=== PATIENT | female | born 1980 | race African-American/Black ===

== ENCOUNTER 2016-11-29 01:36 | Inpatient (IN) | payer SELFPAY ==
[2016-11-29] VITALS (9 sets, daily range): BP systolic 106–128; BP diastolic 48–81
[~2016-11-29] VITALS: Ht 160 cm; Wt 86.6 kg
[2016-11-29 04:46] LABS: BILIRUBIN,URINE NEGATIVE (NEG); GLUCOSE,URINE NEGATIVE (NEG); NITRITE,URINE NEGATIVE (NEG); PH,URINE 6.5; PROTEIN,URINE NEGATIVE (NEG-TRACE); UROBILINOGEN,URINE 0.2 mg/dL (0.2 mg/dL)
[2016-11-29 05:00] LABS: BACTERIA,URINE FEW /HPF (0-FEW); RBC,URINE 0 /HPF (0-2); SQUAMOUS EPITHELIAL CELL,UR MOD /LPF; WBC,URINE OCC /HPF (0-4)
[2016-11-29] MEDS ORDERED: ONDA4TAB10 SL (05:43)
[2016-11-29] MEDS ORDERED: TRAM-48 PO (05:43)
--- NOTE | 2016-11-29 05:43 | PHYS DOC ---
Past Medical History Past Medical History: No Pertinent History Past Surgical History: Other Additional Past Surgical Histo: "FOR MY STOMACH" Alcohol Use: Occasionally Drug Use: None Adult General Chief Complaint Chief Complaint: ABDOMINAL PAIN HPI HPI Patient is a 36 year old female who presents to the ER today complaining of lower abdominal pain since 2 PM. Patient denies any fevers shakes chills nausea vomiting diarrhea dysuria frequency or urgency. Patient reports that she does have a vaginal discharge which is new or concerning to her. Patient reports her last sexual intercourse was October 03. Patient reports that she's had 2 different partners in the last 6 month however whenever she's had sex with unprotected sex that she does not think it STD. Patient has any hypertension diabetes liver longer kidney problems. Patient portion smokes and drinks. Patient is not allergic to any medications. Patient's last menstrual period was November. Patient's physical exam was significant for tenderness to palpation to the right lower quadrant suprapubic region. Patient has normal active bowel sounds. Patient has no rebound or guarding. Patient has no signs or symptoms of be consistent with an acute surgical abdomen. She has pelvic exam revealed a white cheeselike discharge in her vaginal vault. Patient has no cervical motion tenderness. No adnexal masses. Patient's ER workup consisted of labs were all unremarkable. Patient had a UA that was negative. Patient will be treated with Diflucan for her yeast vaginitis. Patient is CT scan of her abdomen pelvis which do not show any acute pathology. Assessment and plan Abdominal pain without peritoneal findings. Etiology unclear. Patient be given Diflucan to assist with her yeast vaginitis. Patient's CT scan did not reveal any acute pathology. Patient be discharged home with Motrin and Zofran. Patient had a CT scan of the abdomen and pelvis result 6:05 AM. Radiology reports some mild amount of stranding and a slightly enlarged appendix in the right lower quadrant which should be consistent with early appendicitis. I discussed the case with Dr. Fernández and he requested that we admit the patient and he will consult for possible surgical evaluation. Patient be admitted to the hospital service. I discussed with the patient that she might have appendicitis and will be admitted for evaluation by surgery. Review of Systems Review of Systems Constitutional: Denies fever or chills [] Eyes: Denies change in visual acuity, redness, or eye pain [] All other review systems are negative except as documented in the history of present illness portion. Current Medications Current Medications Current Medications Medications (Trade) Dose Ordered Sig/Kary Start Time Stop Time Status Last Admin Dose Admin Fluconazole (Diflucan) 150 mg 1X ONCE 11/29/16 06:00 11/29/16 06:01 DC Allergies Allergies Allergies Coded Allergies Type Severity Reaction Last Updated Verified No Known Drug Allergies 09/04/13 No Physical Exam Physical Exam Constitutional: Well developed, well nourished, no acute distress, non-toxic appearance. [] HENT: Normocephalic, atraumatic, bilateral external ears normal, oropharynx moist, no oral exudates, nose normal. [] Eyes: PERRLA, EOMI, conjunctiva normal, no discharge. [] Neck: Normal range of motion, no tenderness, supple, no stridor. [] Cardiovascular:Heart rate regular rhythm, no murmur [] Lungs & Thorax: Bilateral breath sounds clear to auscultation [] Abdomen: Soft nondistended no rebound or guarding. Positive tenderness in the right lower quadrant. Skin: Warm, dry, no erythema, no rash. [] Back: No tenderness, no CVA tenderness. [] Extremities: No tenderness, no cyanosis, no clubbing, ROM intact, no edema. [] Neurologic: Alert and oriented X 3, normal motor function, normal sensory function, no focal deficits noted. [] Psychologic: Affect normal, judgement normal, mood normal. [] Current Patient Data Vital Signs Vital Signs Date Time Temp Pulse Resp B/P (MAP) Pulse Ox O2 Delivery O2 Flow Rate FiO2 11/29/16 01:38 98.3 58 18 117/66 (83) 100 Room Air 98.3 Lab Values Laboratory Tests Test 11/29/16 03:51 11/29/16 04:30 POC Urine HCG, Qualitative Hcg negative (Negative) Urine Collection Type Unknown Urine Color Yellow Urine Clarity Clear Urine pH 6.5 Urine Specific [place] 1.020 Urine Protein Negative mg/dL (NEG-TRACE) Urine Glucose (UA) Negative mg/dL (NEG) Urine Ketones (Stick) Negative mg/dL (NEG) Urine Blood Negative (NEG) Urine Nitrite Negative (NEG) Urine Bilirubin Negative (NEG) Urine Urobilinogen Dipstick 0.2 mg/dL (0.2 mg/dL) Urine Leukocyte Esterase Negative (NEG) Urine RBC 0 /HPF (0-2) Urine WBC Occ /HPF (0-4) Urine Squamous Epithelial Cells Mod /LPF Urine Bacteria Few /HPF (0-FEW) Urine Mucus Mod /LPF Microbiology 11/29/16 Wet Prep - Final, Complete EKG EKG [] Radiology/Procedures Radiology/Procedures [] Course & Med Decision Making Course & Med Decision Making Pertinent Labs and Imaging studies reviewed. (See chart for details) [] Dragon Disclaimer Dragon Disclaimer This electronic medical record was generated, in whole or in part, using a voice recognition dictation system. Departure Departure Impression: Primary Impression: Chronic abdominal pain Additional Impressions: Yeast vaginitis Abdominal pain Appendicitis Disposition: ADMITTED INPATIENT Admitting Physician: Other (reusch) Condition: IMPROVED Referrals: NO PCP (PCP) Patient Instructions: Abdominal Pain (Nonspecific), Vaginitis, Monilial Scripts Ondansetron (ZOFRAN ODT) 4 Mg Tab.rapdis 1 TAB SL Q6HRS Y for NAUSEA, #12 TAB Prov: JOE ALBRIGHT MD 11/29/16 Tramadol Hcl (ULTRAM) 50 Mg Tablet 1 TAB PO Q6HRS, #14 TAB Prov: JOE ALBRIGHT MD 11/29/16 Problem Qualifiers JOE ALBRIGHT MD Nov 29, 2016 05:43
--- NOTE | 2016-11-29 05:54 | RAD ---
INDICATION: rlq pain COMPARISON: None. TECHNIQUE: Axial CT images were obtained through the abdomen and pelvis without intravenous contrast. Limited assessment of solid organ structures and vasculature secondary to lack of intravenous contrast. One or more of the following individualized dose reduction techniques were utilized for this examination: 1. Automated exposure control; 2. Adjustment of the mA and/or kV according to patient size; 3. Use of iterative reconstruction technique. FINDINGS: Abdomen: Chest Base: Partially imaged without gross abnormality. Vessels: No abdominal aortic aneurysm. Liver/Biliary: No intrahepatic biliary duct dilation. Pancreas: No peripancreatic edema. Spleen: Normal. Kidneys/Adrenal: No hydronephrosis. GI: The appendix measures up to approximately 6-7 mm. There is some questionable minimal stranding to the fat in the right lower quadrant of the abdomen but this is a subtle finding. Pelvis: Bladder: No definite adjacent inflammation. IMPRESSION: 1. No hydronephrosis bilaterally. 2. There is some questionable very mild stranding of the fat of the right lower quadrant of the abdomen. This region is located lateral to the appendix which measures near the upper limits of normal in size in some portions. Given that the region of possible stranding is in the right lower quadrant of the abdomen but not immediately surrounding the appendix and the appendix is only borderline in size this examination is equivocal for appendicitis. Some patients can have a borderline size appendix at baseline but would be difficult to exclude a very early appendicitis if there is high clinical concern. If unclear clinically and further imaging evaluation is desired a follow-up CT could be obtained at a later time to assess whether there is further increase in size of the appendix or increase in the questionable stranding within the region. 3. There is some free fluid seen in the pelvis. Electronically signed by: Alverto Parra MD (11/29/2016 5:50 AM)
[2016-11-29] MEDS ORDERED: FLUCONAZOLE 100 MG TABLET. PO ONE (06:00)
[2016-11-29] MEDS ORDERED: fentaNYL PF VIAL 100 MCG/2 ML VIAL IV PRN ×4 (06:15→12:15)
--- NOTE | 2016-11-29 06:40 | ACF ---
Admission Forms Criteria ABDOMINAL PAIN Clinical Indications for Admission to Inpatient Care (Place 'X' for any and all applicable criteria): Admission is indicated for ANY ONE of the following(1)(2)(3)(4)(5): [x]I. Inpatient admission required rather than observation care (Also use Abdominal Pain: Observation Care, as appropriate) because of ANY ONE of the following: [x]a) Severe pain requiring acute inpatient management [ ]b) Identification of etiology/finding that requires inpatient care (eg, aortic dissection, free air) [ ]c) Absent bowel sounds with complete ileus(6) [ ]d) Suspected toxic megacolon [ ]e) Severe electrolyte abnormalities requiring inpatient care [ ]f) High fever or infection requiring inpatient admission as indicated by ANY ONE of following(7)(8): [ ] i) Appropriate outpatient or observational care antimicrobial treatment unavailable, not effective, or not feasible [ ] ii) Documented bacteremia [ ] iii) Temperature > 104.9 degrees F (oral) [ ] iv) T >103.1 F (oral) or < 96.8 F(rectal) that does not respond to all emergency treatment measures [ ]g) Signs of intestinal obstruction [B] [ ]h) Hemodynamic instability [ ]i) IV fluid to replace significant ongoing losses (greater than 3 L/m2 per day) (12)(13) [ ]j) Percutaneous or open drainage (eg, abscess, biliary tract ) procedures [ ]k) Parenteral nutrition regimen that must be implemented on inpatient basis [ ]l) Other condition,treatment or monitoring requiring inpatient admission. [ ]II. Peritoneal signs present [ ]III. Surgery needed that cannot be performed on an ambulatory basis. [ ]IV. Evaluation requires patient to not eat or drink for extended period ( eg, more than 24 hours). [ ]V. Contraindications and/or Inappropriate clinical situations for Observational Care in patients with abdominal pain, when ANY ONE of the following is required: [ ]a) Thorough evaluation is required to prevent catastrophic events due to delays in diagnosing (e.g.Mesenteric ischemia) 1,3 [ ]b) Patient with severe pathology or with chronic symptoms unlikely to improve in the ED stay (3) [ ]. General contraindications and/or Inappropriate clinical situations for Observational Care in patients with abdominal pain, when ANY ONE of the following is required: [ ]a) Prediction of prolongation of LOS based on ANY ONE of the following may be considered as a contraindication for observational care 2, 3, 4, 5, 6, 7, 8, 9, 10, 11 [ ]i) Age > 65 yrs. [ ]ii) Patient arriving by ambulance [ ]iii) Patient with high acuity [ ]iv) Patient requiring vital sign monitoring [ ]v) Patient on IV medication [ ]b) Systolic blood pressures 180mmHg 3,12 [ ]c) Patient with altered mental status including delirium and other alteration of consciousness, (3) [ ]d) Patient whose discharge disposition will be to a fpc home or rehabilitation home should not be managed in Emergency Department Observation Unit. CMS rule requires 3 days hospital stay before such placement.3,13 [ ]e) Patient with failure to thrive due to broad array of etiologies 3,16,17 [ ]f) Inability to ambulate 3,14 Extended stay beyond goal length of stay may be needed for(2)(3): [ ]a) Persistent abdominal pain with suspected intra-abdominal process [ ]b) Diagnosed condition requiring continued stay (e.g., pancreatitis, complicated diverticulitis) [ ]c) Surgery (e.g., colectomy) The original [facility] [facility] content created by [employer] has been revised. The portions of the content which have been revised are identified through the use of italic text or in bold, and [facility] has neither reviewed nor approved the modified material.All other unmodified content is copyright [employer]. Please see references footnoted in the original [employer] [facility] edition 2016 Admission Criteria Met?: Yes JOSI CASEY Nov 29, 2016 06:40
[2016-11-29] MEDS: IV NORMAL SALINE 1000ML BAG 1,000 ML IV SCH ×2 (06:46→14:30)
[2016-11-29] MEDS: ONDANSETRON PF 4 MG/2 ML VIAL. IV PRN ×2 (06:46→16:48)
[2016-11-29 06:47] LABS: BASO % 0 % (0-3); EOS % 1 % (0-3); HEMATOCRIT 28.2 % (36.0-47.0); HEMOGLOBIN 8.9 g/dL (12.0-15.5); LYMPH # 1.8 x10^3/uL (1.0-4.8); LYMPH % 30 % (24-48); MEAN CORPUSCULAR HEMOGLOBIN 24 pg (25-35); MEAN CORPUSCULAR HGB CONC 32 g/dL (31-37); MEAN CORPUSCULAR VOLUME 75 fL (79-100); MONO % 7 % (0-9); NEUT % 61 % (31-73); PLATELET COUNT 171 x10^3/uL (140-400); RED BLOOD COUNT 3.76 x10^6/uL (3.50-5.40); RED CELL DISTRIBUTION WIDTH 18.8 % (11.5-14.5); WHITE BLOOD COUNT 6.1 x10^3/uL (4.0-11.0)
[2016-11-29 07:01] LABS: CALCIUM 8.8 mg/dL (8.5-10.1); CREATININE 0.8 mg/dL (0.6-1.0); GFR 98.2
[2016-11-29 07:02] LABS: ALBUMIN 3.1 g/dL (3.4-5.0); ALBUMIN/GLOBULIN RATIO 0.7 (1.0-1.7); TOTAL BILIRUBIN 0.3 mg/dL (0.2-1.0); TOTAL PROTEIN 7.4 g/dL (6.4-8.2)
[2016-11-29] MEDS ORDERED: SURGICEL HEMOSTAT 4X8 EACH. ONE (07:57)
[2016-11-29] MEDS ORDERED: BUPIVAC MPF-EPI 0.5%-1:200000 30 ML VIAL. ONE (07:57)
[2016-11-29] MEDS ORDERED: MIDAZOLAM HCL/PF 2 MG/2 ML VIAL. ONE (08:35)
[2016-11-29] MEDS ORDERED: fentaNYL PF VIAL 100 MCG/2 ML VIAL ONE ×2 (08:35→09:46)
[2016-11-29] MEDS ORDERED: DESFLURANE 61 TO 120 MINUTES IH ONE (08:35)
[2016-11-29] MEDS ORDERED: GLYCOPYRROLATE 1 MG/5 ML VIAL. ONE (08:35)
[2016-11-29] MEDS ORDERED: NEOSTIGMINE 10 MG/10 ML VIAL. ONE (08:35)
[2016-11-29] MEDS ORDERED: NEOSTIGMINE METHYLSULFATE 5 MG/5 ML SYRINGE. ONE (08:36)
[2016-11-29] MEDS ORDERED: PROPOFOL 20 ML IV ONE (08:36)
[2016-11-29] MEDS ORDERED: SUCCINYLCHOLINE 200 MG/10 ML VIAL. ONE (08:36)
[2016-11-29] MEDS ORDERED: DEXAMETHASONE SOD PHOS 20 MG/5 ML VIAL. ONE (08:36)
[2016-11-29] MEDS ORDERED: ONDANSETRON PF 4 MG/2 ML VIAL. ONE (08:36)
[2016-11-29] MEDS ORDERED: ROCURONIUM 50 MG/5 ML VIAL. ONE (08:36)
[2016-11-29] MEDS ORDERED: LIDOCAINE 2% PF Vial for OR 5 ML VIAL. ONE (08:36)
[2016-11-29] MEDS ORDERED: KETOROLAC 60 MG/2 ML INJ FOR OR. ONE (08:36)
--- NOTE | 2016-11-29 09:09 | PDOC ---
Provider Note Provider Note #[id number]--afnvepz dictated observation vs. lap appy d/w her. she desires to proceed with surgery. see consult dictated for details. CHRISTOPHER SEVERINO MD Nov 29, 2016 09:09
[2016-11-29] MEDS ORDERED: IV RINGERS,LACTATED 1000ML 1,000 ML IV SCH (10:09)
[2016-11-29] MEDS ORDERED: PROCHLORPERAZINE 10 MG/2 ML VIAL. ONE (10:11)
[2016-11-29] MEDS ORDERED: PROCHLORPERAZINE 10 MG/2 ML VIAL. IV PRN (10:15)
[2016-11-29] MEDS ORDERED: LIDOCAINE 1% 1 ML SYRINGE. ID PRN (10:15)
[2016-11-29] MEDS ORDERED: HYDROmorphone 2 MG/ML VIAL IV PRN (10:15)
[2016-11-29] MEDS ORDERED: ONDANSETRON PF 4 MG/2 ML VIAL. IV PRN (10:15)
[2016-11-29] MEDS ORDERED: MORPHINE SULFATE 2 MG/ML DISP.SYRIN. IV PRN (10:15)
--- NOTE | 2016-11-29 10:24 | PDOC ---
BRIEF OPERATIVE NOTE Pre-Op Diagnosis appendicitis Post-Op Diagnosis hydrosalpinx Procedure Performed lap appy Surgeon dr. ailyn severino ebl 10 ivf 1100 breana well #[id number] CHRISTOPHER SEVERINO MD Nov 29, 2016 10:24
[2016-11-29] MEDS ORDERED: CLINDAMYCIN 600MG PREMIX 50 ML IV ONE (10:27)
[2016-11-29] MEDS ORDERED: oxyCODONE/APAP 5/325 1 TAB TABLET PO PRN (10:30)
--- NOTE | 2016-11-29 10:35 | PDOC ---
SUBJECTIVE Subjective Patient seen in RECOVERY ROOM Consultation for Pelvic Inflammatory Disease OBJECTIVE Objective Discuussed with Dr. Daugherty regarding PID and Patient just had Appendectomy Patient is Drowzy She is Lmp November Not on Control Vital Signs Vital Signs Date Time Temp Pulse Resp B/P (MAP) Pulse Ox O2 Delivery O2 Flow Rate FiO2 11/29/16 10:25 70 16 122/77 97 Room Air 11/29/16 10:10 98.0 77 16 118/74 100 Simple Mask 10 98.0 11/29/16 08:08 97.0 63 20 113/76 100 Room Air 97.0 11/29/16 07:00 97.8 56 18 106/48 (67) 98 Room Air 97.8 11/29/16 06:35 70 18 120/56 (77) 99 Room Air 11/29/16 03:30 69 18 126/72 (90) 98 Room Air 11/29/16 01:38 98.3 58 18 117/66 (83) 100 Room Air 98.3 PHYSICAL EXAM Physical Exam Abdomen Tender due to surgery ASSESSMENT/PLAN Assessment/Plan IV Clindamycin 600mg Q8 hours today Problems: COMMENT Lab Laboratory Tests Test 11/29/16 03:51 11/29/16 04:30 11/29/16 06:35 Bedside Urine HCG, Qualitative Hcg negative (Negative) Urine Collection Type Unknown Urine Color Yellow Urine Clarity Clear Urine pH 6.5 Urine Specific [place] 1.020 Urine Protein Negative mg/dL (NEG-TRACE) Urine Glucose (UA) Negative mg/dL (NEG) Urine Ketones (Stick) Negative mg/dL (NEG) Urine Blood Negative (NEG) Urine Nitrite Negative (NEG) Urine Bilirubin Negative (NEG) Urine Urobilinogen Dipstick 0.2 mg/dL (0.2 mg/dL) Urine Leukocyte Esterase Negative (NEG) Urine RBC 0 /HPF (0-2) Urine WBC Occ /HPF (0-4) Urine Squamous Epithelial Cells Mod /LPF Urine Bacteria Few /HPF (0-FEW) Urine Mucus Mod /LPF White Blood Count 6.1 x10^3/uL (4.0-11.0) Red Blood Count 3.76 x10^6/uL (3.50-5.40) Hemoglobin 8.9 g/dL (12.0-15.5) Hematocrit 28.2 % (36.0-47.0) Mean Corpuscular Volume 75 fL (79-100) Mean Corpuscular Hemoglobin 24 pg (25-35) Mean Corpuscular Hemoglobin Concent 32 g/dL (31-37) Red Cell Distribution Width 18.8 % (11.5-14.5) Platelet Count 171 x10^3/uL (140-400) Neutrophils (%) (Auto) 61 % (31-73) Lymphocytes (%) (Auto) 30 % (24-48) Monocytes (%) (Auto) 7 % (0-9) Eosinophils (%) (Auto) 1 % (0-3) Basophils (%) (Auto) 0 % (0-3) Neutrophils # (Auto) 3.7 x10^3uL (1.8-7.7) Lymphocytes # (Auto) 1.8 x10^3/uL (1.0-4.8) Monocytes # (Auto) 0.4 x10^3/uL (0.0-1.1) Eosinophils # (Auto) 0.1 x10^3/uL (0.0-0.7) Basophils # (Auto) 0.0 x10^3/uL (0.0-0.2) Sodium Level 140 mmol/L (136-145) Potassium Level 4.0 mmol/L (3.5-5.1) Chloride Level 105 mmol/L (98-107) Carbon Dioxide Level 27 mmol/L (21-32) Anion Gap 8 (6-14) Blood Urea Nitrogen 9 mg/dL (7-20) Creatinine 0.8 mg/dL (0.6-1.0) Estimated GFR (Cockcroft-Gault) 98.2 BUN/Creatinine Ratio 11 (6-20) Glucose Level 108 mg/dL (70-99) Calcium Level 8.8 mg/dL (8.5-10.1) Total Bilirubin 0.3 mg/dL (0.2-1.0) Aspartate Amino Transf (AST/SGOT) 13 U/L (15-37) Alanine Aminotransferase (ALT/SGPT) 18 U/L (14-59) Alkaline Phosphatase 55 U/L (46-116) Total Protein 7.4 g/dL (6.4-8.2) Albumin 3.1 g/dL (3.4-5.0) Albumin/Globulin Ratio 0.7 (1.0-1.7) Lipase 85 U/L (73-393) PAYTON RAMIREZ MD Nov 29, 2016 10:35
[2016-11-29] MEDS: POTASSIUM CHLORIDE 20 MEQ in IV 1/2 NORMAL SALINE 1,000 ML IV SCH ×2 (12:30→16:49)
--- NOTE | 2016-11-29 12:38 | HP ---
ADMIT DATE: 11/29/2016 CHIEF COMPLAINT: Right lower quadrant abdominal pain. HISTORY OF PRESENT ILLNESS: The patient is a 36-year-old -[place] woman who presented to the Emergency Room with abdominal pain. She relates that she actually has been seen in various Emergency Rooms multiple times over the past 8-10 months with same symptoms. She describes her pain to be in location in the lower abdomen, localizing on physical exam to the right lower quadrant but without any guarding or rebound. She denies any fevers or chills. She also noted some vaginal discharge which was concerning to her. She has unprotected sex, has had 2 different partners in the past 6 months but does not think this is STD. A CT of the abdomen was obtained which showed some mild amount of stranding and slightly enlarged appendix in the right lower quadrant consistent with early appendicitis. She is, therefore, admitted with Surgical consult for appendectomy in the a.m. PAST MEDICAL HISTORY: None. PAST SURGICAL HISTORY: None. FAMILY HISTORY: Mother of cervical cancer recently. No other diseases known. SOCIAL HISTORY: Lives with her 17-year-old daughter, unemployed, smokes about 4-5 cigarettes a day. Denies any drug use. ALLERGIES: No known drug allergies. HOME MEDICATIONS: Motrin p.r.n. REVIEW OF SYSTEMS: Positive as per HPI. Rest of organ system review is negative. PHYSICAL EXAMINATION: VITAL SIGNS: From today show a blood pressure of 113/76, heart rate of 63, and respiratory rate at 20. She is afebrile. GENERAL: This is a 36-year-old, obese, -[place] woman, alert and oriented, no acute distress. HEENT: Shows no scleral icterus. NECK: Supple. LUNGS: Clear to auscultation bilaterally. HEART: Regular rate and rhythm. ABDOMEN: Has positive bowel sounds, mild tenderness to palpation in right lower quadrant. EXTREMITIES: Show no edema. SKIN: Warm, soft, and dry. LABORATORY DATA: CBC with a WBC of 6.1, hemoglobin 8.9, MCV of 75, and platelets of 171. Chemistries are with a BUN and creatinine of 9 and 0.8, normal electrolytes, normal LFTs, and albumin at 3.1. Urine is negative. IMAGING STUDIES: CT of the abdomen is positive for stranding in the right lower quadrant of the abdomen but not immediately surrounding the appendix, and appendix was only borderline in size, equivocal for appendicitis. ASSESSMENT AND PLAN: The patient is a 36-year-old, -[place] woman with right lower quadrant pain and possible signs consistent with appendicitis on CT, now admitted. Surgery has been consulted. She is scheduled for the OR for appendectomy today. Postop course, she will be kept n.p.o. for the time being. IV fluids will be started. Pain control with narcotics as needed, trying to minimize. Advance diet as per Surgery. The patient is significantly anemic with microcytosis consistent with iron deficiency. We will obtain anemia labs for this. Cannot rule out inherited anemia as well. Prophylaxis will be achieved with proton pump inhibitor. YVETTE MAZA MD DR: RANDALL/nts JOB#: [id number] / [id number] GUANACO
[2016-11-29] MEDS: NICOTINE 7MG PATCH. TD SCH (12:47)
--- NOTE | 2016-11-29 13:53 | OP ---
DATE OF SURGERY: 11/29/2016 PREOPERATIVE DIAGNOSIS: Appendicitis. POSTOPERATIVE DIAGNOSIS: Hydrosalpinx bilaterally. PROCEDURE: Laparoscopic appendectomy. SURGEON: Christopher Severino M.D. ANESTHESIA: General. ESTIMATED BLOOD LOSS: 10 mL. IV FLUIDS: 1100 mL. INDICATIONS: The patient is a 36-year-old female who presents with a right lower quadrant pain since yesterday. It is worsening, and CT scan was equivocal for appendicitis. Exam was consistent with appendicitis. She was taken to the operating room for laparoscopic appendectomy. FINDINGS: Her appendix grossly appeared normal. She had no inflammatory changes in her right lower quadrant. Her pelvis demonstrated boggy, edematous fallopian tubes bilaterally with hydrosalpinx. Her ovaries were otherwise unremarkable. She had flimsy adhesions in her pelvis and she had flimsy adhesions around her liver consistent with a previous history of PID. There was no purulence or acute inflammatory changes noted in the abdomen or pelvis. DESCRIPTION OF PROCEDURE: After informed consent was obtained, the patient was taken to the operating room and placed in the supine position. After adequate induction of general anesthesia, she was prepped and draped in the usual sterile fashion. An umbilical skin incision was made with a scalpel, subcutaneous tissues with a hemostat. [facility] was used to grab the fascia and lift it anteriorly. Veress was used to gain access to the peritoneal cavity. Low opening pressures confirmed intraperitoneal placement of Veress. Pneumoperitoneum to 15 mmHg was established followed by placement of 5 mm port. A 5 mm 30 degree lens was inserted, which revealed good port placement. No evidence of entry trauma. She was placed head down and rotated towards her left. Two additional ports were placed under direct vision, one was a 12 mm left lower quadrant port and one was a suprapubic 5 mm port. The sites were injected with local anesthetic and the ports were placed under direct vision. The appendix was visible and the right lower quadrant was unremarkable in appearance. Small bowel was run several feet from the ileocecal valve proximally and was unremarkable. She had flimsy adhesions around her liver consistent with a previous history of PID. Her ovaries, fallopian tubes, uterus and pelvis were as discussed above. Laparoscopic appendectomy was performed by making a window at the base of the appendix. Laparoscopic MAYELA blue load stapler was used to divide the base of appendix. Laparoscopic MAYELA white load was used to divide the mesoappendix. The appendix was placed in a laparoscopic bag and brought out through the left lower quadrant incision. The patient had some bleeding from the mesoappendiceal staple line that was controlled with application of clip gear cutting machine operator. At this point, the right lower quadrant and pelvis were irrigated. The irrigant returned clear. The staple lines were intact and hemostatic. Pictures were taken of the fallopian tubes, ovaries and uterus. Fascial closure device was used to close the fascia at the left lower quadrant incision using 0 Vicryl suture. The ports were removed under direct vision. They were hemostatic. Pneumoperitoneum was desufflated. Skin incisions were closed with 4-0 Monocryl in subcuticular fashion. Sterile dressings were placed. She tolerated the procedure well. There were no apparent complications. She was then transferred in stable condition to the recovery room. Dr. Da Silva has been consulted from Gynecology for evaluation of her possible PID. CHRISTOPHER SEVERINO MD DR: JOAQUÍN/michela JOB#: [id number] / [id number] GUANACO
[2016-11-29] MEDS ORDERED: CALCIUM CARBONATE 500 MG TAB.CHEW PO PRN (16:00)
--- NOTE | 2016-11-29 20:12 | CONS ---
DATE OF CONSULTATION: 11/29/2016 HOSPITAL COURSE: This patient is 36-year-old -[place] female who has been operated by Dr. Daugherty for appendicitis and has had a recent appendectomy and I was called to see the patient in consult because of acute pelvic inflammatory disease and dilated fallopian tubes at the time of appendectomy and the patient was seen in the recovery room area. She is a 36-year-old 1, para 1, last menstrual period on 11/09/2016. She is not on any control pills at this time and has pelvic inflammatory disease as confirmed by the Surgery and since she has already had the surgery at this point, we would recommend IV antibiotics, clindamycin 600 mg q. 8 hours for at least 24-48 hours in order to relieve the pain and the pelvic inflammatory disease at this time and this was explained to the patient. Abdomen feels quite tender because of the surgery and the patient will be seen tomorrow morning before dismissing the patient. IMPRESSION: Acute pelvic inflammatory disease with the post appendectomy. RECOMMENDATIONS: IV fluid, IV antibiotics, observation and further treatment. Thank you for giving me the opportunity to participate in the care and management of this patient. PAYTON RAMIREZ MD DR: ALEJANDRA/michela JOB#: [id number] / [id number]
[2016-11-29] MEDS: FAMOTIDINE 20 MG TABLET. PO SCH (20:32)
--- NOTE | 2016-11-29 23:56 | CONS ---
DATE OF CONSULTATION: 11/29/2016 CHIEF COMPLAINT: Abdominal pain. HISTORY OF PRESENT ILLNESS: The patient is a 36-year-old female who presents with abdominal pain that began yesterday around 2:00. She says the pain was periumbilical and just to the right of her umbilicus and then she was able to eat and then fall asleep for quite a while, but when she woke up, the pain began intensifying and it localized more in the right lower quadrant and right flank and right back area. The pain is worse with movement. It is a hard, dull type of pain that is constant. It is not a pain that she has had before. She has had sexually transmitted disease in the past, but did not have abdominal pain like this. She has vaginal discharge, does not itch and does not smell foul. She does not think she has a sexually transmitted disease at this time. She has no nausea, vomiting or loss of appetite. PAST MEDICAL HISTORY: Denies. PAST SURGICAL HISTORY: She had a laparoscopic surgery in the past, but she is not sure for what. SOCIAL HISTORY: She does have a daughter. She is unemployed. She smokes about half a pack a day and she does drink alcohol. FAMILY HISTORY: Noncontributory to this illness. MEDICATIONS AT HOME: Denies. ALLERGIES: Denies. REVIEW OF SYSTEMS: CONSTITUTIONAL: Denies fevers or chills. EYES: Denies abrupt loss of vision or double vision. EARS, NOSE, MOUTH AND THROAT: Denies loss of hearing or ringing in her ears. CARDIOVASCULAR: Denies chest pain or heart palpitations other than the occasional chest pain she has from her acid reflux. RESPIRATORY: Denies cough, shortness of breath. GASTROINTESTINAL: See HPI. GENITOURINARY: See HPI. No dysuria or hematuria. HEMATOLOGIC: No easy bleeding or bruising. MUSCULOSKELETAL: No new myalgias or arthralgias. DERMATOLOGIC: No new skin rashes or lesions. PSYCHIATRIC: Denies depression or anxiety. NEUROLOGIC: No headaches or seizures. ENDOCRINE: No polyuria or polydipsia. PHYSICAL EXAMINATION: VITAL SIGNS: She is afebrile with a pulse of 63, respiratory rate 20, blood pressure 113/76. Her O2 sats 100% on room air. GENERAL: Well-built, well-nourished female who does not appear to feel well. She is in no acute distress. PSYCHIATRIC: She is cooperative with appropriate mood and affect. NEUROLOGIC: She has no resting tremors. She can move all 4 extremities without difficulty. EYES: Her pupils are round and reactive. Sclerae are nonicteric. HENT: Head is atraumatic. Mucous membranes are moist. Face is symmetric. NECK: Supple, without cervical lymphadenopathy, no supraclavicular lymphadenopathy. CARDIOVASCULAR: Palpation of her radial pulse, she has 2+ right radial pulse. Regular rate and rhythm. No pedal edema. RESPIRATORY: Respirations are nonlabored. CHEST WALL: Nontender to palpation. ABDOMEN: Soft, nondistended. She has positive Rovsing sign and she has pain in the right lower quadrant with localized rebound right at McBurney's point. DERMATOLOGIC: Exposed portions of her skin are unremarkable. LABORATORY DATA: Lab was reviewed. CT scan, I reviewed the images as well as the report. ASSESSMENT: 1. Right lower quadrant pain with CT scan that is equivocal for appendicitis, but history and physical exam that are supportive of appendicitis. 2. Anemia, present on admission, chronic, etiology unclear. 3. Mild malnutrition with an albumin of 3.1 present on admission. 4. The ER doctor's note was reviewed. The patient did have yeast vaginitis on physical exam and she did not have cervical motion tenderness. No adnexal masses. PLAN: I discussed with the patient the equivocal CT scan findings and two different courses of action, one of which would be observation and the other would be laparoscopic appendectomy, possible open appendectomy. I think in her case, and I expressed this to her, that either option is reasonable. If she has appendicitis, I think that there is no evidence of impending rupture and observation to confirm persistence of her pain and to better secure the diagnosis before appendectomy would be reasonable, but also given the inflammation in the right lower quadrant, the lack of cervical motion tenderness , the lack of other findings on vaginal exam in the ER as well as her tenderness and rebound at McBurney's point all support laparoscopic appendectomy at this time. After discussion, she desires to proceed with surgery. The procedure was discussed with her. Risk of bleeding, infection, finding a normal appendix or other pathology requiring treatment and risk of need to convert to open and remote risk of cardiopulmonary complications were discussed with her. Questions were answered. She desires to proceed with the procedure. She has told me that I should call her sister Guerda who is a nurse on the 5th floor postoperatively to discuss the operative findings. CHRISTOPHER SEVERINO MD DR: JOAQUÍN/michela JOB#: [id number] / [id number] GUANACO
[2016-11-30 03:00] VITALS: BP 107/55
[2016-11-30] MEDS: POTASSIUM CHLORIDE 20 MEQ in IV 1/2 NORMAL SALINE 1,000 ML IV SCH (03:27)
[2016-11-30 07:00] VITALS: BP 105/60
--- NOTE | 2016-11-30 07:49 | PDOC ---
SUBJECTIVE Subjective Patient feeling better OBJECTIVE Objective No fever Abdomen soft Vital Signs Vital Signs Date Time Temp Pulse Resp B/P (MAP) Pulse Ox O2 Delivery O2 Flow Rate FiO2 11/30/16 07:00 98.4 71 18 105/60 (75) 96 Room Air 98.4 11/30/16 03:00 97.5 87 16 107/55 (72) 98 Room Air 97.5 11/29/16 23:00 98.2 96 18 126/68 (87) 99 Room Air 98.2 11/29/16 19:25 Room Air 11/29/16 19:00 96.8 93 18 120/68 (85) 98 Room Air 96.8 11/29/16 15:00 98.2 61 18 123/80 (94) 98 Room Air 98.2 11/29/16 12:45 97.8 73 18 128/81 (97) 97 Room Air 97.8 11/29/16 12:15 79 18 122/81 (95) 97 Room Air 11/29/16 12:00 97.9 59 18 125/81 (96) 98 Room Air 97.9 11/29/16 11:45 62 18 119/78 (92) 96 Room Air 11/29/16 11:30 97.8 61 18 118/80 (93) 98 Room Air 97.8 11/29/16 10:55 79 16 120/83 97 Room Air 11/29/16 10:40 70 18 128/69 97 Room Air 11/29/16 10:29 Room Air 11/29/16 10:25 70 16 122/77 97 Room Air 11/29/16 10:10 98.0 77 16 118/74 100 Simple Mask 10 98.0 11/29/16 08:08 97.0 63 20 113/76 100 Room Air 97.0 I & O Intake and Output 11/30/16 07:00 Intake Total 3262 ml Output Total 0 ml Balance 3262 ml Intake Oral 520 ml IV Total 2742 ml Output Urine Total 0 ml # Voids 2 PHYSICAL EXAM Physical Exam Patient has gotten up Eating well Likes to go home ASSESSMENT/PLAN Assessment/Plan Patient can go home if ok with Return to office in 2 weeks She can go home with Cleocin 300mg po q 8 hours for 1 week Problems: PAYTON RAMIREZ MD Nov 30, 2016 07:48
[2016-11-30] MEDS ORDERED: CLIN300C8 PO (08:19)
[2016-11-30] MEDS ORDERED: ACETAMINOPHEN 325 MG TABLET. PO PRN (09:00)
[2016-11-30] MEDS: FAMOTIDINE 20 MG TABLET. PO SCH (09:14)
[2016-11-30] MEDS: NICOTINE 7MG PATCH. TD SCH (09:17)
--- NOTE | 2016-11-30 09:36 | PDOC ---
Provider Note Provider Note less abd pain today. abd soft nd approp tender at inc inc bandages dry a/p PID--home on abx per rampman. CHRISTOPHER SEVERINO MD Nov 30, 2016 09:36
--- NOTE | 2016-11-30 10:39 | PDOC3 ---
Discharge Summary Visit Information Date of Admission: Nov 29, 2016 Date of Discharge: Nov 30, 2016 Admitting Diagnosis Comment: acute appy s/p lap appy PID Final Diagnosis Problems Medical Problems: (1) Abdominal pain Status: Acute (2) Chronic abdominal pain Status: Acute (3) Yeast vaginitis Status: Acute Brief Hospital Course Allergies Allergies Coded Allergies Type Severity Reaction Last Updated Verified No Known Drug Allergies 11/29/16 No Vital Signs Vital Signs Date Time Temp Pulse Resp B/P (MAP) Pulse Ox O2 Delivery O2 Flow Rate FiO2 11/30/16 07:30 Room Air 11/30/16 07:00 98.4 71 18 105/60 (75) 96 98.4 11/29/16 10:10 10 Lab Results Laboratory Tests Test 11/29/16 03:51 11/29/16 04:30 11/29/16 06:35 Bedside Urine HCG, Qualitative Hcg negative (Negative) Urine Collection Type Unknown Urine Color Yellow Urine Clarity Clear Urine pH 6.5 Urine Specific Sayre 1.020 Urine Protein Negative mg/dL (NEG-TRACE) Urine Glucose (UA) Negative mg/dL (NEG) Urine Ketones (Stick) Negative mg/dL (NEG) Urine Blood Negative (NEG) Urine Nitrite Negative (NEG) Urine Bilirubin Negative (NEG) Urine Urobilinogen Dipstick 0.2 mg/dL (0.2 mg/dL) Urine Leukocyte Esterase Negative (NEG) Urine RBC 0 /HPF (0-2) Urine WBC Occ /HPF (0-4) Urine Squamous Epithelial Cells Mod /LPF Urine Bacteria Few /HPF (0-FEW) Urine Mucus Mod /LPF White Blood Count 6.1 x10^3/uL (4.0-11.0) Red Blood Count 3.76 x10^6/uL (3.50-5.40) Hemoglobin 8.9 g/dL (12.0-15.5) Hematocrit 28.2 % (36.0-47.0) Mean Corpuscular Volume 75 fL (79-100) Mean Corpuscular Hemoglobin 24 pg (25-35) Mean Corpuscular Hemoglobin Concent 32 g/dL (31-37) Red Cell Distribution Width 18.8 % (11.5-14.5) Platelet Count 171 x10^3/uL (140-400) Neutrophils (%) (Auto) 61 % (31-73) Lymphocytes (%) (Auto) 30 % (24-48) Monocytes (%) (Auto) 7 % (0-9) Eosinophils (%) (Auto) 1 % (0-3) Basophils (%) (Auto) 0 % (0-3) Neutrophils # (Auto) 3.7 x10^3uL (1.8-7.7) Lymphocytes # (Auto) 1.8 x10^3/uL (1.0-4.8) Monocytes # (Auto) 0.4 x10^3/uL (0.0-1.1) Eosinophils # (Auto) 0.1 x10^3/uL (0.0-0.7) Basophils # (Auto) 0.0 x10^3/uL (0.0-0.2) Sodium Level 140 mmol/L (136-145) Potassium Level 4.0 mmol/L (3.5-5.1) Chloride Level 105 mmol/L (98-107) Carbon Dioxide Level 27 mmol/L (21-32) Anion Gap 8 (6-14) Blood Urea Nitrogen 9 mg/dL (7-20) Creatinine 0.8 mg/dL (0.6-1.0) Estimated GFR (Cockcroft-Gault) 98.2 BUN/Creatinine Ratio 11 (6-20) Glucose Level 108 mg/dL (70-99) Calcium Level 8.8 mg/dL (8.5-10.1) Total Bilirubin 0.3 mg/dL (0.2-1.0) Aspartate Amino Transf (AST/SGOT) 13 U/L (15-37) Alanine Aminotransferase (ALT/SGPT) 18 U/L (14-59) Alkaline Phosphatase 55 U/L (46-116) Total Protein 7.4 g/dL (6.4-8.2) Albumin 3.1 g/dL (3.4-5.0) Albumin/Globulin Ratio 0.7 (1.0-1.7) Lipase 85 U/L (73-393) Brief Hospital Course Ms. Mir is a 36 old Aa female admitted for acute appy, Underwent lap appy, BUt intraop was found to have dilated fallopian tubes, likely PID. Gyne consulted, Recommended clinda 300 q8. I have written rx. ff up GS 2 weeks and oB gyne as needed Pt seen and examined dw her counselled > 50% time COnsults: GS and gYNE Proc; Lap appy Discharge Information Condition at Discharge: Improved, Stable Follow Up: Weeks (2 weeks [place]) Disposition/Orders: D/C to Home Scheduled Tramadol Hcl (Ultram), 1 TAB PO Q6HRS Scheduled PRN Ondansetron (Zofran Odt), 1 TAB SL Q6HRS PRN for NAUSEA ERIK STORM MD Nov 30, 2016 10:39
[2016-11-30 11:00] VITALS: BP 102/55
--- NOTE | 2016-11-30 13:50 | PATHOLOGY ---
PATHOLOGY REPORT * * * * * * * * FINAL DIAGNOSIS: Appendix, appendectomy: - Intraluminal, submucosal and intramuscular lymphocytes present. - Might represent possible resolving appendicitis. - No acute inflammation seen. ([facility]:jaquelin; d/t: 11/30/16) REPORT ELECTRONICALLY SIGNED BY: Chris Boyce M.D. DATE/TIME: 11/30/2016 13:50 * * * * * * * * GROSS PATHOLOGY: Received in formalin labeled "Amy Carey, appendix," is an appendix measuring 6.2 cm in length and 0.8 cm in diameter with a moderate amount of attached mesoappendix. The serosal surface is pink broussard, smooth and glistening. Sectioning reveals a slightly dilated lumen throughout focally filled with thin, reddish pink fluid. Cutting Pressman sections are submitted in cassette A1. ([facility]; 11/29/16) INITIAL CPT CODE(S): A; 38536 Professional services performed by [facility] [place] [address] Technical services performed by [facility] at [address] [place] [address]. SPECIMEN(S) RECEIVED: A.Appendix CLINICAL HISTORY: Appendicitis PATIENT: AMY CAREY /AGE: 1104/11/1980 (Age: 36) PATIENT #: [id number] ALT CASE #: SPECIMEN COLLECTION DATE: 11/29/2016 SPECIMEN RECEIVED DATE: 11/29/2016 [facility] - [address] [place] [address] - PHONE: [phone] * * * END OF REPORT * * *
== END 2016-11-30 12:27 | disposition home or self-care (01) | DRG 342 ==
LOC: ER 01:36 → 4 NORTH 06:00
PROVIDERS: ADMIT Internal Medicine Hematology & Oncology; ATTEND Internal Medicine Hematology & Oncology
PROC: 0DTJ4ZZ Resection of Appendix, Percutaneous Endoscopic Approach (ICD-10-PCS; principal; 2016-11-29 08:45)
DX: K37 Unspecified appendicitis (principal); E44.1 Mild protein-calorie malnutrition; N73.0 Acute parametritis and pelvic cellulitis; N70.11 Chronic salpingitis; B37.3 Candidiasis of vulva and vagina; D50.9 Iron deficiency anemia, unspecified; E11.9 Type 2 diabetes mellitus without complications; F17.210 Nicotine dependence, cigarettes, uncomplicated; I10 Essential (primary) hypertension; K66.8 Other specified disorders of peritoneum; N73.6 Female pelvic peritoneal adhesions (postinfective); Z80.49 Family history of malignant neoplasm of other genital organs; Z56.0 Unemployment, unspecified; Z68.33 Body mass index [BMI] 33.0-33.9, adult
CPT/HCPCS: 36415; 74176; 80053; 81001; 81025; 83690; 85027; 87491; 87591; 88304; J0330; J0694; J1100; J1885; J2250; J2405; J2704; J2710; J3010; J3490; J7030; J7120; Q0111; 99285-25

== ENCOUNTER → 2017-03-29 | Outpatient (CLI) | payer OTHER ==
[~2017-03-29] MED LIST: CLIN300C8 PO; ONDA4TAB10 SL; TRAM-48 PO
--- NOTE | 2017-03-29 16:25 | RAD ---
EXAM: Pelvic ultrasound HISTORY: Pelvic pain. COMPARISON: None. FINDINGS: Sonographic evaluation of the pelvis was performed transabdominally and transvaginally. The uterus is anteverted and measures 10.2 x 6.3 x 7.4 cm. The endometrial stripe measures 10 mm. No masses are identified. There is no significant free fluid. The right ovary measures 4.5 x 3.1 x 2.6 cm. The left ovary measures 3.2 x 2.5 x 2.2 cm. There is normal Doppler flow bilaterally. There are no suspicious lesions. IMPRESSION: 1. No cause for pain is identified.
== END | disposition home or self-care (01) ==
LOC: US 13:48
PROVIDERS: ATTEND Obstetrics & Gynecology
DX: R10.2 Pelvic and perineal pain (principal)
CPT/HCPCS: 76830; 76856

== ENCOUNTER 2018-08-05 14:54 | Emergency (ER) | payer SELFPAY ==
[~2018-08-05] VITALS: Ht 162.6 cm; Wt 97.5 kg
[~2018-08-05 14:54] MED LIST changes: +CALC200T3 PO; +ESOM40CA PO; +FAMO-63 PO; +MEDR150D3 IM; +NAPR220C4 PO
[2018-08-05 15:10] VITALS: BP 143/81
--- NOTE | 2018-08-05 15:26 | PHYS DOC ---
Past Medical History Past Medical History: GERD Past Surgical History: Appendectomy, Other Additional Past Surgical Histo: "FOR MY STOMACH" Alcohol Use: Occasionally Drug Use: None Adult General Chief Complaint Chief Complaint: COUGH HPI HPI Patient is a 38 year old female with history of smoking who presents to the ED today complaining of a productive cough for 1 month. Patient denies any fever. Denies any nasal congestion. Unknown if she is . Review of Systems Review of Systems Constitutional: Denies fever or chills [] Eyes: Denies change in visual acuity, redness, or eye pain [] HENT: Denies nasal congestion or sore throat [] Respiratory: Reports a productive cough, denies shortness of breath [] Cardiovascular: No additional information not addressed in HPI [] GI: Denies abdominal pain, nausea, vomiting, bloody stools or diarrhea [] : Denies dysuria or hematuria [] Musculoskeletal: Denies back pain or joint pain [] Integument: Denies rash or skin lesions [] Neurologic: Denies headache, focal weakness or sensory changes [] All other systems were reviewed and found to be within normal limits, except as documented in this note. Allergies Allergies Allergies Coded Allergies Type Severity Reaction Last Updated Verified No Known Drug Allergies 11/29/16 No Physical Exam Physical Exam Constitutional: Well developed, well nourished, no acute distress, non-toxic appearance. [] HENT: Normocephalic, atraumatic, bilateral external ears normal, oropharynx moist, no oral exudates, nose normal. [] Eyes: PERRLA, EOMI, conjunctiva normal, no discharge. [] Neck: Normal range of motion, no tenderness, supple, no stridor. [] Cardiovascular:Heart rate regular rhythm, no murmur [] Lungs & Thorax: Bilateral breath sounds clear to auscultation [] Abdomen: Bowel sounds normal, soft, no tenderness, no masses, no pulsatile masses. [] Skin: Warm, dry, no erythema, no rash. [] Back: No tenderness, no CVA tenderness. [] Extremities: No tenderness, no cyanosis, no clubbing, ROM intact, no edema. [] Neurologic: Alert and oriented X 3, normal motor function, normal sensory function, no focal deficits noted. [] Psychologic: Affect normal, judgement normal, mood normal. [] Current Patient Data Vital Signs Vital Signs Date Time Temp Pulse Resp B/P (MAP) Pulse Ox O2 Delivery O2 Flow Rate FiO2 08/05/18 15:10 98.4 115 19 143/81 (101) 98 Room Air 98.4 Lab Values Laboratory Tests Test 08/05/18 15:34 POC Urine HCG, Qualitative Hcg negative (Negative) EKG EKG [] Radiology/Procedures Radiology/Procedures []PROCEDURE: CHEST PA & LATERAL EXAM: Chest, 2 views. HISTORY: Cough. COMPARISON: None. FINDINGS: 2 views the chest are obtained. There is no infiltrate, pleural effusion or pneumothorax. The heart is normal in size. IMPRESSION: No acute pulmonary finding. Electronically signed by: Sandy Heller MD (08/05/2018 4:02 PM) [place] [id number] DICTATED and SIGNED BY: SANDY HELLER MD DATE: 08/05/18 160 Course & Med Decision Making Course & Med Decision Making Pertinent Labs and Imaging studies reviewed. (See chart for details) This is a 38-year-old female patient with history of smoking presenting to the ED today complaining of a productive cough for 1 month. Patient was advised to consider smoking cessation. Chest x-ray interpreted by radiologist as negative for any acute findings, symptoms are likely viral bronchitis. Talked to patient about the importance of smoking cessation, discharged with prednisone for 5 days, albuterol inhaler and Tessalon Perles. Encouraged to Establish Care with a PCP. Dragon Disclaimer Dragon Disclaimer This electronic medical record was generated, in whole or in part, using a voice recognition dictation system. Departure Departure Impression: Primary Impression: Acute bronchitis Additional Impression: Smoking addiction Disposition: 01 HOME, SELF-CARE Condition: STABLE Referrals: UNKNOWN PCP NAME (PCP) Follow-up with the primary care doctor in 1-2 weeks Patient Instructions: Acute Bronchitis, [id number], Smoking Cessation Additional Instructions: You were evaluated in the emergency room with symptoms consistent of viral bronchitis. Please consider smoking cessation. Establish care with a primary care doctor. Scripts Prednisone (PREDNISONE) 50 Mg Tablet 1 TAB PO DAILY, #5 TAB Prov: MUTUNGA,RAQUEL [employer] 08/05/18 Benzonatate (TESSALON PERLE) 100 Mg Capsule 1 CAP PO TID, #30 CAP Prov: MUTUNGA,[employer]EL [employer] WORK[employer] 08/05/18 Albuterol Sulfate (VENTOLIN HFA INHALER) 18 Gm Hfa.aer.ad 2 PUFF INH Q4HRS for FOR ASTHMA, #1 INHALER 0 Refills Prov: RAQUEL CRUM APRN 08/05/18 Problem Qualifiers Primary Impression: Acute bronchitis Bronchitis organism: unspecified organism Qualified Codes: J20.9 - Acute bronchitis, unspecified RAQUEL CRMU APRN Aug 05, 2018 15:26
--- NOTE | 2018-08-05 16:05 | RAD ---
EXAM: Chest, 2 views. HISTORY: Cough. COMPARISON: None. FINDINGS: 2 views the chest are obtained. There is no infiltrate, pleural effusion or pneumothorax. The heart is normal in size. IMPRESSION: No acute pulmonary finding. Electronically signed by: Sandy Heller MD (08/05/2018 4:02 PM) [place] [id number]
[2018-08-05] MEDS ORDERED: PRED50TA PO (16:11)
[2018-08-05] MEDS ORDERED: BENZ100C PO (16:11)
[2018-08-05] MEDS ORDERED: VENTOLIN HFA18 GM INH (16:11)
== END 2018-08-05 16:35 | disposition home or self-care (01) ==
LOC: ER 14:54
DX: J20.9 Acute bronchitis, unspecified (principal); F17.200 Nicotine dependence, unspecified, uncomplicated; K21.9 Gastro-esophageal reflux disease without esophagitis; Z90.89 Acquired absence of other organs
CPT/HCPCS: 71046; 81025; 99283

== ENCOUNTER 2019-07-02 09:13 | Emergency (ER) | payer SELFPAY ==
[~2019-07-02] VITALS: Ht 165.1 cm; Wt 95.0 kg
[~2019-07-02 09:13] MED LIST changes: +BENZ100C PO; +PRED50TA PO; +VENTOLIN HFA18 GM INH
[2019-07-02] MEDS ORDERED: MORPHINE SULFATE 4 MG/ML VIAL. IV ONE (10:30)
[2019-07-02] MEDS ORDERED: cefTRIAXone IV Push 1 GM VIAL. IVP ONE (10:30)
[2019-07-02] MEDS ORDERED: AZITHROMYCIN 250 MG TABLET. PO ONE (10:30)
[2019-07-02] MEDS ORDERED: metroNIDAZOLE 500 MG TABLET PO ONE (10:30)
[2019-07-02 10:40] LABS: BASO % 1 % (0-3); EOS # 0.1 x10^3/uL (0.0-0.7); EOS % 1 % (0-3); HEMATOCRIT 23.6 % (36.0-47.0); HEMOGLOBIN 7.1 g/dL (12.0-15.5); LYMPH # 2.2 x10^3/uL (1.0-4.8); LYMPH % 31 % (24-48); MEAN CORPUSCULAR HEMOGLOBIN 19 pg (25-35); MEAN CORPUSCULAR HGB CONC 30 g/dL (31-37); MEAN CORPUSCULAR VOLUME 64 fL (79-100); MONO # 0.5 x10^3/uL (0.0-1.1); MONO % 7 % (0-9); NEUT # 4.2 x10^3/uL (1.8-7.7); NEUT % 61 % (31-73); PLATELET COUNT 273 x10^3/uL (140-400); RED BLOOD COUNT 3.72 x10^6/uL (3.50-5.40); RED CELL DISTRIBUTION WIDTH 30.8 % (11.5-14.5)
[2019-07-02 10:50] LABS: BILIRUBIN,URINE NEGATIVE (NEG); CLARITY,URINE CLEAR; COLOR,URINE YELLOW; NITRITE,URINE NEGATIVE (NEG); PROTEIN,URINE NEGATIVE (NEG-TRACE); UROBILINOGEN,URINE 0.2 mg/dL (0.2 mg/dL)
--- NOTE | 2019-07-02 10:56 | PHYS DOC ---
Past Medical History Past Medical History: GERD, P.I.D., Other Past Surgical History: Appendectomy, Other Additional Past Surgical Histo: "FOR MY STOMACH" Alcohol Use: Occasionally Drug Use: None Adult General Chief Complaint Chief Complaint: ABDOMINAL PAIN HPI HPI Patient is a 39 year old female with history of appendectomy who presents to the ED today complaining of 8 out of 10 pelvic pain bilaterally with vaginal discharge that began 2 days ago though she also reports she has been on her c ycle for the last 2 days. Denies any chance she is . She reports she has history of pelvic inflammatory disease and this pain feels similar to the last time she had PID. Denies anything unusual about her menstrual cycle this time Review of Systems Review of Systems Constitutional: Denies fever or chills [] Eyes: Denies change in visual acuity, redness, or eye pain [] HENT: Denies nasal congestion or sore throat [] Respiratory: Denies cough or shortness of breath [] Cardiovascular: No additional information not addressed in HPI [] GI: Reports pelvic pain, denies nausea, vomiting, bloody stools or diarrhea [] : Denies dysuria or hematuria [] Musculoskeletal: Denies back pain or joint pain [] Integument: Denies rash or skin lesions [] Neurologic: Denies headache, focal weakness or sensory changes [] All other systems were reviewed and found to be within normal limits, except as documented in this note. Current Medications Current Medications Current Medications Medications (Trade) Dose Ordered Sig/Kary Start Time Stop Time Status Last Admin Dose Admin Azithromycin (Zithromax) 1,000 mg 1X ONCE 07/02/19 10:30 07/02/19 10:31 DC 07/02/19 11:10 1,000 MG Ceftriaxone Sodium (Rocephin) 1 gm 1X ONCE 07/02/19 10:30 07/02/19 10:31 DC 07/02/19 11:11 1 GM Metronidazole (Flagyl) 2,000 mg 1X ONCE 07/02/19 10:30 07/02/19 10:31 DC 07/02/19 11:10 2,000 MG Morphine Sulfate (Morphine Sulfate) 4 mg 1X ONCE 07/02/19 10:30 07/02/19 10:31 DC 07/02/19 11:09 4 MG Allergies Allergies Allergies Coded Allergies Type Severity Reaction Last Updated Verified No Known Drug Allergies 11/29/16 No Physical Exam Physical Exam Constitutional: Well developed, well nourished, no acute distress, non-toxic appearance. [] HENT: Normocephalic, atraumatic, bilateral external ears normal, oropharynx moist, no oral exudates, nose normal. [] Eyes: PERRLA, EOMI, conjunctiva normal, no discharge. [] Neck: Normal range of motion, no tenderness, supple, no stridor. [] Cardiovascular:Heart rate regular rhythm, no murmur [] Lungs & Thorax: Bilateral breath sounds clear to auscultation [] Abdomen: Bowel sounds normal, soft, no tenderness, no masses, no pulsatile masses. [] Pelvic exam External pelvic appears normal, cervix is visualized, closed, positive CMT, no adnexal tenderness, small amount of bright red blood noted in the vaginal vault Skin: Warm, dry, no erythema, no rash. [] Back: No tenderness, no CVA tenderness. [] Extremities: No tenderness, no cyanosis, no clubbing, ROM intact, no edema. [] Neurologic: Alert and oriented X 3, normal motor function, normal sensory function, no focal deficits noted. [] Psychologic: Affect normal, judgement normal, mood normal. [] Current Patient Data Vital Signs Vital Signs Date Time Temp Pulse Resp B/P (MAP) Pulse Ox O2 Delivery O2 Flow Rate FiO2 07/02/19 11:35 Room Air 07/02/19 11:08 74 133/75 (94) 100 07/02/19 10:00 98.3 18 98.3 Lab Values Laboratory Tests Test 07/02/19 10:25 07/02/19 10:40 07/02/19 10:43 White Blood Count 7.0 x10^3/uL (4.0-11.0) Red Blood Count 3.72 x10^6/uL (3.50-5.40) Hemoglobin 7.1 g/dL (12.0-15.5) L Hematocrit 23.6 % (36.0-47.0) L Mean Corpuscular Volume 64 fL (79-100) L Mean Corpuscular Hemoglobin 19 pg (25-35) L Mean Corpuscular Hemoglobin Concent 30 g/dL (31-37) L Red Cell Distribution Width 30.8 % (11.5-14.5) H Platelet Count 273 x10^3/uL (140-400) Neutrophils (%) (Auto) 61 % (31-73) Lymphocytes (%) (Auto) 31 % (24-48) Monocytes (%) (Auto) 7 % (0-9) Eosinophils (%) (Auto) 1 % (0-3) Basophils (%) (Auto) 1 % (0-3) Neutrophils # (Auto) 4.2 x10^3/uL (1.8-7.7) Lymphocytes # (Auto) 2.2 x10^3/uL (1.0-4.8) Monocytes # (Auto) 0.5 x10^3/uL (0.0-1.1) Eosinophils # (Auto) 0.1 x10^3/uL (0.0-0.7) Basophils # (Auto) 0.0 x10^3/uL (0.0-0.2) Platelet Estimate Adequate (ADEQUATE) Polychromasia Slight Anisocytosis Mod Microcytosis Present Ovalocytes Occ Sodium Level 140 mmol/L (136-145) Potassium Level 3.8 mmol/L (3.5-5.1) Chloride Level 105 mmol/L (98-107) Carbon Dioxide Level 23 mmol/L (21-32) Anion Gap 12 (6-14) Blood Urea Nitrogen 11 mg/dL (7-20) Creatinine 0.8 mg/dL (0.6-1.0) Estimated GFR (Cockcroft-Gault) 96.6 BUN/Creatinine Ratio 14 (6-20) Glucose Level 99 mg/dL (70-99) Calcium Level 8.9 mg/dL (8.5-10.1) Total Bilirubin 0.2 mg/dL (0.2-1.0) Aspartate Amino Transferase (AST) 13 U/L (15-37) L Alanine Aminotransferase (ALT) 14 U/L (14-59) Alkaline Phosphatase 64 U/L (46-116) Total Protein 7.9 g/dL (6.4-8.2) Albumin 3.4 g/dL (3.4-5.0) Albumin/Globulin Ratio 0.8 (1.0-1.7) L Lipase 119 U/L (73-393) Ethyl Alcohol Level < 10 mg/dL (0-10) Urine Collection Type Unknown Urine Color Yellow Urine Clarity Clear Urine pH 6.0 Urine Specific [place] <=1.005 Urine Protein Negative mg/dL (NEG-TRACE) Urine Glucose (UA) Negative mg/dL (NEG) Urine Ketones (Stick) Negative mg/dL (NEG) Urine Blood Large (NEG) Urine Nitrite Negative (NEG) Urine Bilirubin Negative (NEG) Urine Urobilinogen Dipstick 0.2 mg/dL (0.2 mg/dL) Urine Leukocyte Esterase Negative (NEG) Urine RBC >40 /HPF (0-2) Urine WBC 0 /HPF (0-4) Urine Squamous Epithelial Cells Few /LPF Urine Bacteria 0 /HPF (0-FEW) Urine Opiates Screen Neg (NEG) Urine Methadone Screen Neg (NEG) Urine Barbiturates Neg (NEG) Urine Phencyclidine Screen Neg (NEG) Urine Amphetamine/Methamphetamine Neg (NEG) Urine Benzodiazepines Screen Neg (NEG) Urine Cocaine Screen Neg (NEG) Urine Cannabinoids Screen Neg (NEG) Urine Ethyl Alcohol Neg (NEG) POC Urine HCG, Qualitative Hcg negative (Negative) Laboratory Tests 07/02/19 10:25 Laboratory Tests 07/02/19 10:25 Microbiology 07/02/19 Wet Prep - Final, Complete EKG EKG [] Radiology/Procedures Radiology/Procedures []PROCEDURE: PELVIS W/TV Examination: PELVIS W/TV History: Pelvic pain Comparison/Correlation: None Findings: Transvaginal pelvic ultrasound exam was performed. Uterus measuring 9.2 cm x 5.3 cm x 6.7 cm. Heterogeneity of the posterior uterine body is artifactual in appearance. Endometrial thickness of up to 1.4 cm noted. No intrauterine fluid collection. The right ovary measures 2.3 cm x 2.6 cm x 2.4 cm. Left ovary is not visualized on this exam. Normal flow involving the right ovary is present. Small adnexal follicles are present in the left in appearance. Septation involving a right adnexal follicle is suggested but is very thin without nodular component evident. In the right adnexal region, there is a tubular structure which is nonvascular and this appears compatible with hydrosalpinx. No pelvic free fluid. Impression: Right adnexal tubular structure compatible with hydrosalpinx. Right adnexal follicles are pathologic in appearance. One of these has a very thin septation. Correlate clinically determining interval follow-up ultrasound exam in 20 weeks to assess stability or resolution. Electronically signed by: Arjun Diaz MD (07/02/2019 11:31 AM) [facility] DICTATED and SIGNED BY: ARJUN DIAZ MD DATE: 07/02/19 113 Course & Med Decision Making Course & Med Decision Making Pertinent Labs and Imaging studies reviewed. (See chart for details) This is a 39-year-old female patient presenting to the ED today with pelvic pain, vaginal discharge, currently on her menstrual cycle. History of PID CBC with a normal WBC, hemoglobin 7.1, hematocrit 23.6. Urine analysis negative for infection, CMP negative. Wet prep negative. Pelvic ultrasound noted for-right hydrosalpinx and right adnexal follicles are pathologic in appearance. Patient reports she has history of heavy vaginal bleeding and is currently being followed up with an [facility] for low hemoglobin. She reports she is currently on iron tablets. In the ED this patient was given the standard STD treatment and discharged on doxycycline for 10 days. We discussed safe sex practices. We discussed the importance of following up with her [facility]. Anemia was discussed with Dr. Walter Tapia Disclaimer Regina Disclaimer This electronic medical record was generated, in whole or in part, using a voice recognition dictation system. Departure Departure Impression: Primary Impression: Hydrosalpinx Additional Impression: Anemia Disposition: 01 HOME, SELF-CARE Condition: STABLE Referrals: NO PCP (PCP) PAYTON RAMIREZ MD followup with your OBGYN as soon as possible Patient Instructions: Anemia, FAQs, Pelvic Inflammatory Disease, [id number] Additional Instructions: You were evaluated in the emergency room and noted to have infection in your fallopian tube. Please complete the prescribed antibiotics, please do not have any intercourse until the antibiotics are completed and you have been seen by the [facility]. Please use protection at all times. You also have concerning findings of a cyst on your right ovary. This needs to be seen by an [facility] [employer] as well. Scripts Ondansetron Hcl (ZOFRAN) 4 Mg Tablet 1 TAB PO Q6HRS PRN for NAUSEA, #20 TAB Prov: MUTUNGA,RAQUEL PAINTER ORDNANCE 07/02/19 Doxycycline Hyclate (DOXYCYCLINE HYCLATE) 100 Mg Tablet 1 TAB PO BID, #20 TAB Prov: MUTUNGA,RAQUEL PAINTER ORDNANCE 07/02/19 Problem Qualifiers Additional Impression: Anemia Anemia type: unspecified type Qualified Codes: D64.9 - Anemia, unspecified RAQUEL CRUM PAINTER ORDNANCE Jul 02, 2019 10:55
[2019-07-02 10:58] LABS: SQUAMOUS EPITHELIAL CELL,UR FEW /LPF
[2019-07-02 10:59] LABS: BACTERIA,URINE 0 /HPF (0-FEW); RBC,URINE >40 /HPF (0-2); WBC,URINE 0 /HPF (0-4)
[2019-07-02 11:02] LABS: ANISOCYTOSIS MOD; PLT ESTIMATE ADEQUATE (ADEQUATE)
[2019-07-02 11:03] LABS: POLYCHROMASIA SLIGHT
[2019-07-02 11:04] LABS: MICROCYTOSIS PRESENT
[2019-07-02 11:05] LABS: BARBITURATES NEG (NEG); BENZODIAZEPINES NEG (NEG); CANNABINOIDS NEG (NEG); COCAINE NEG (NEG); METHADONE NEG (NEG); OPIATES NEG (NEG); PHENCYCLIDINE NEG (NEG)
[2019-07-02 11:05] LABS: OVALOCYTES OCC
[2019-07-02 11:06] LABS: CALCIUM 8.9 mg/dL (8.5-10.1); CREATININE 0.8 mg/dL (0.6-1.0); GFR 96.6; POTASSIUM 3.8 mmol/L (3.5-5.1)
[2019-07-02 11:08] VITALS: BP 133/75
[2019-07-02 11:08] LABS: AMPHETAMINE/METHAMPHETAMINE NEG (NEG)
[2019-07-02 11:08] LABS: ALBUMIN 3.4 g/dL (3.4-5.0); ALBUMIN/GLOBULIN RATIO 0.8 (1.0-1.7); TOTAL BILIRUBIN 0.2 mg/dL (0.2-1.0); TOTAL PROTEIN 7.9 g/dL (6.4-8.2)
--- NOTE | 2019-07-02 11:34 | RAD ---
Examination: PELVIS W/TV History: Pelvic pain Comparison/Correlation: None Findings: Transvaginal pelvic ultrasound exam was performed. Uterus measuring 9.2 cm x 5.3 cm x 6.7 cm. Heterogeneity of the posterior uterine body is artifactual in appearance. Endometrial thickness of up to 1.4 cm noted. No intrauterine fluid collection. The right ovary measures 2.3 cm x 2.6 cm x 2.4 cm. Left ovary is not visualized on this exam. Normal flow involving the right ovary is present. Small adnexal follicles are present in the left in appearance. Septation involving a right adnexal follicle is suggested but is very thin without nodular component evident. In the right adnexal region, there is a tubular structure which is nonvascular and this appears compatible with hydrosalpinx. No pelvic free fluid. Impression: Right adnexal tubular structure compatible with hydrosalpinx. Right adnexal follicles are pathologic in appearance. One of these has a very thin septation. Correlate clinically determining interval follow-up ultrasound exam in 20 weeks to assess stability or resolution. Electronically signed by: Arjun More MD (07/02/2019 11:31 AM) [facility]
[2019-07-02] MEDS ORDERED: ONDA4TAB7 PO (13:04)
[2019-07-02] MEDS ORDERED: DOXY100T PO (13:04)
== END 2019-07-02 13:21 | disposition home or self-care (01) ==
LOC: ER 09:13
DX: N70.11 Chronic salpingitis (principal); D64.9 Anemia, unspecified; R10.2 Pelvic and perineal pain; N93.9 Abnormal uterine and vaginal bleeding, unspecified; K21.9 Gastro-esophageal reflux disease without esophagitis; N73.9 Female pelvic inflammatory disease, unspecified; Z90.89 Acquired absence of other organs; Z98.890 Other specified postprocedural states
CPT/HCPCS: 36415; 76830; 76856; 80053; 80307; 81001; 81025; 83690; 85025; 96374; 96375; 99285; G0480; J0696; J2270; Q0111; Q0144